=== PATIENT | female | born 1990 | race Caucasian/White ===

== ENCOUNTER 2016-12-01 21:14 | Emergency (ER) | payer MEDICAID ==
[2016-12-01] MEDS ORDERED: ONDANSETRON 4 MG/2 ML VIAL IVP ONE (21:33)
[2016-12-01] MEDS ORDERED: NS 1,000 ML IV ONE (21:33)
[2016-12-01 21:39] VITALS: PULSE 105; RESP 20; TEMP 98.1; O2SAT 99
[2016-12-01 21:39] LABS: COLOR YELLOW; LEUKOCYTE ESTERASE,URINE NEGATIVE (NEGATIVE); NITRITE,URINE NEGATIVE (NEGATIVE)
[2016-12-01] MEDS ORDERED: HYOSCYAMINE SULFATE 0.125 MG TAB PO ONE (21:50)
[2016-12-01] MEDS ORDERED: ONDANSETRON DISINTEGRATING 4 MG TAB PO ONE (21:50)
--- NOTE | 2016-12-01 21:55 | UCPHY ---
H & P Patient Type: New Chief Complaint Nursing Narrative: N/V/D/generalized sharp,cramping abdominal pains x 2 days. Time Seen by Provider: 12/01/16 21:34 HPI/ROS: This patient reports intermittent crampy lower abdominal pain that started with diarrhea 2 days ago. She had 2 episodes of loose watery stool Monday and Monday and then today had increased to 4-5 episodes. Distal remains watery and brown. She developed some intermittent lower belly cramping associated with this which is 6/10 at peak intensity and generally fleeting with some resolution of the cramping between episodes. She also reports onset of vaginal spotting today 2 weeks after her last menses which was normal timing. She reports compliance with her oral contraceptives and has not missed any doses. She has associated nausea and she causing emesis bite gagging herself this morning hoping that she would feel improved. She did not improve. She has anorexia today any crackers this morning with anything else to eat. She is tolerating p.o. fluids however. ROS: No high fevers or chills. She denies any other constitutional symptoms. HEENT: She does have mild nasal congestion for a week or so. No other HEENT complaints. Pulmonary: No coughing cardiovascular: No lightheadedness GI: No upper belly pain. She denies any blood in her stool. No coffee-ground emesis. : No urinary symptoms. No vaginal discharge. 10 point ROS is otherwise negative. Source: Patient Exam Limitations: No limitations - Personal History LMP (Females 10-55): 8-14 Days Ago Current Tetanus Diphtheria and Acellular Pertussis (TDAP): Yes - Medical/Surgical History Hx Asthma: No Hx Chronic Respiratory Disease: No Hx Diabetes: No Hx Cardiac Disease: No Hx Renal Disease: No Hx Cirrhosis: No Hx Alcoholism: No Hx HIV/AIDS: No Hx Splenectomy or Spleen Trauma: No Other PMH: denies. . No abdominal surgeries - Family History Significant Family History: No pertinent family hx - Social History Smoking Status: Never smoked Alcohol Use: Occasionally Drug Use: None Additional Social History: Patient was exposed to friend last week who had a diarrheal illness - Physical Exam Exam: Normal vital signs exception of pulse of 105 and mild hypertension General Appearance: Alert, no distress. Eyes: Pupils equal and round no pallor or injection. ENT, Mouth: Mucous membranes moist. Respiratory: There are no retractions, lungs are clear to auscultation. Cardiovascular: Regular rate and rhythm. Gastrointestinal: Abdomen is soft and nontender, no masses, bowel sounds normal. Neurological: Alert. No deficits Skin: Warm and dry, no rashes. Musculoskeletal: Neck is supple nontender. Extremities are symmetrical, full range of motion. Psychiatric: Mood and affect are normal DIFFERENTIAL DIAGNOSIS: After history and physical exam differential diagnosis was considered for viral gastroenteritis, rule out , doubt appendicitis , doubt UTI Constitutional: Initial Vital Signs Temperature (C) 36.7 C 12/01/16 21:36 Heart Rate 105 H 12/01/16 21:36 Respiratory Rate 20 12/01/16 21:36 Blood Pressure 165/95 H 12/01/16 21:36 O2 Sat (%) 99 12/01/16 21:36 O2 Delivery Mode Room Air Allergies/Adverse Reactions: No Known Allergies Allergy (Unverified 12/01/16 21:35) Home Medications: Medication Instructions Recorded Control 12/01/16 Ondansetron Odt [Zofran Odt] 4 - 8 mg PO Q4PRN PRN #4 tab 12/01/16 Medical Decision Making ED Course/Re-evaluation: The patient refuses an IV with hydration. She is treated with Zofran ODT and Levsin for cramping. Urinalysis and urine is pending She tolerated p.o. fluid after Zofran without difficulty. Her urine is negative. Other than microscopic hematuria consistent with vaginal bleed urinalysis is unremarkable. I counseled regarding this. She appears clinically well. I think that she has a viral gastroenteritis and vaginal spotting. She will follow up with OBGYN regarding the spotting. - Data Points Laboratory Results: 12/01/16 12/01/16 21:32 21:31 Urine Color YELLOW Urine Appearance CLEAR Urine pH 6.0 (5.0-7.5) Ur Specific [place] >= 1.030 (1.002-1.030) Urine Protein TRACE H (NEGATIVE) Urine Ketones TRACE H (NEGATIVE) Urine Blood 1+ H (NEGATIVE) Urine Nitrate NEGATIVE (NEGATIVE) Urine Bilirubin NEGATIVE (NEGATIVE) Urine Urobilinogen 1.0 EU EU (0.2-1.0) Ur Leukocyte Esterase NEGATIVE (NEGATIVE) Urine RBC 0-1 /hpf /hpf (0-3) Urine WBC NONE SEEN /hpf /hpf (0-3) Ur Epithelial Cells 2+ /lpf H /lpf (NONE-1+) Urine Bacteria 2+ /hpf H /hpf (NONE SEEN) Urine Mucus 3+ /lpf H /lpf (NONE-1+) Urine Glucose NEGATIVE (NEGATIVE) Urine Test NEGATIVE Medications Given: Discontinued Medications Hyoscyamine Sulfate (Levsin, Hyomax-Sl) 0.125 mg PO EDNOW ONE Stop: 12/01/16 21:51 Last Admin: 12/01/16 21:54 Dose: 0.125 mg Sodium Chloride (Ns) 1,000 mls @ 0 mls/hr IV ONCE ONE PRN Reason: Wide Open Stop: 12/01/16 21:34 Last Admin: 12/01/16 21:57 Dose: Not Given Ondansetron HCl (Zofran) 4 mg IVP EDNOW ONE Stop: 12/01/16 21:34 Last Admin: 12/01/16 21:58 Dose: Not Given Ondansetron HCl (Zofran Odt) 4 mg PO EDNOW ONE Stop: 12/01/16 21:51 Last Admin: 12/01/16 21:54 Dose: 4 mg Departure - Departure Disposition: Home, Routine, Self-Care Clinical Impression: Viral gastroenteritis, Vaginal spotting Condition: Good Instructions: Gastroenteritis (ED) Additional Instructions: Diagnosis: Viral gastroenteritis 2. Vaginal spotting Plan: Drink plenty fluids Light diet to feel improved Zofran for nausea vomiting Imodium if needed for diarrhea Follow up with OBGYN for vaginal bleeding. Go to the emergency department for any significant worsening despite the treatment plan Referrals: Helen Thibodeaux MD [Medical Doctor] - As per Instructions Stand Alone Forms: Work Excuse Prescriptions: Ondansetron Odt [Zofran Odt] 4 - 8 mg PO Q4PRN PRN #4 tab PRN Reason: Vomiting - PQRS PQRS Measurement: NA
[2016-12-01 22:05] LABS: BACTERIA 2+ /hpf (NONE SEEN); MUCUS 3+ /lpf (NONE-1+); RBC,URINE 0-1 /hpf (0-3); WBC,URINE NONE SEEN /hpf (0-3)
[2016-12-01 22:57] VITALS: BP 140/86
== END 2016-12-01 22:43 | disposition home or self-care (01) ==
LOC: CED 21:14
DX: A08.4 Viral intestinal infection, unspecified (principal); N93.9 Abnormal uterine and vaginal bleeding, unspecified
CPT/HCPCS: 81003-PO; 81015-PO; 81025-PO; 99204-PO; G0463-PO; J2405